=== PATIENT | male | born 1985 | race Caucasian/White ===

== ENCOUNTER 2021-10-26 10:12 | Emergency (ER) | payer SELFPAY ==
[~2021-10-26] VITALS: Ht 182.9 cm; Wt 137.4 kg
[2021-10-26 10:31] VITALS: BP 156/93
[2021-10-26] MEDS ORDERED: AMOXIL/CLAVULANATE 875/125 MG 1 TAB PO ONE (11:10)
[2021-10-26] MEDS ORDERED: GABAPENTIN 300 MG CAP PO ONE ×2 (11:10→11:25)
[2021-10-26] MEDS ORDERED: HYDR-5191 PO (11:18)
[2021-10-26] MEDS ORDERED: GABA800T6 PO (11:18)
[2021-10-26] MEDS ORDERED: AMOX-1000 PO (11:18)
--- NOTE | 2021-10-26 11:27 | NUR ---
36/M BIB SELF FOR MED REFILL. PATIENT STATES HE HAS BEEN DEALING WITH A GUM INFECTION AND IS LOOKING TO HAVE A PRESCRIPTION FOR GABAPENTIN AND NORCO FILLED BECAUSE HE RECENTLY RAN OUT. STATES HE [place] AND IS STILL WORKING TO GET A PCP. PATIENT DENIES SOB, FEVER OR CHILLS.
--- NOTE | 2021-10-26 11:45 | NUR ---
Patient discharged with v/s stable. Written and verbal after care instructions ABOUT MEDICINE REFILL IN THE ED AND DENTAL ABSCESS given and explained. Patient alert, oriented and verbalized understanding of instructions. Ambulatory with steady gait. All questions addressed prior to discharge. ID band removed. Patient advised to follow up with PMD. Rx of AUGMENTIN 875-125, GABAPENTIN, AND NORCO 10-325MG given. Patient educated on indication of medication including possible reaction and side effects. Opportunity to ask questions provided and answered.
== END 2021-10-26 11:45 | disposition home or self-care (01) ==
LOC: MED 10:12
DX: K04.7 Periapical abscess without sinus (principal); K02.9 Dental caries, unspecified; Z76.0 Encounter for issue of repeat prescription; Z79.899 Other long term (current) drug therapy; Z88.6 Allergy status to analgesic agent; Z88.8 Allergy status to other drugs, medicaments and biological substances
CPT/HCPCS: 99283

== ENCOUNTER 2021-11-15 10:25 | Emergency (ER) | payer OTHER ==
[~2021-11-15] VITALS: Ht 182.9 cm; Wt 139.9 kg
[~2021-11-15 10:25] MED LIST: AMOX-1000 PO; GABA800T6 PO; HYDR-5191 PO
[2021-11-15 10:28] VITALS: BP 151/107
--- NOTE | 2021-11-15 10:37 | NUR ---
PATIENT AMBULATED TO BED 11.
--- NOTE | 2021-11-15 10:44 | NUR ---
36 Y MALE FROM HOME WITH C/O GUM PAIN ON & OFF X 5 WEEKS. SEEN HERE FOR DENTAL ABSCESS 10/26/21. PT STATED HE WAS GIVEN ABX WHEN HE WAS LAST SEEN, BUT HAS RUN OUT OF HIS MEDICATIONS. PT TAKES TYLENOL AT HOME, BUT DENIES ANY PAIN RELFIEF. BROKEN TOOTH AND BLACK TOOTH NOTED ON R SIDE OF GUM. PT STATED HE IS UNABLE TO SEE A DENTIST UNTIL 12/14/21 DUE TO INSURNACE REASONS. PT STATED HE IS STILL ABLE TO EAT AND DRINK NORMALLY AT THIS TIME. DENIES ANY N/V OR DYSPHAGIA AT THIS TIME PMH: SJORGEN'S, LUPUS ALLERGIES: ASPIRIN, NSAIDS, KETOROLAC
--- NOTE | 2021-11-15 10:50 | NUR ---
DR. ALVA BEDSIDE EVALUATING PT
[2021-11-15] MEDS ORDERED: HYDROcodone/APAP 10/325 MG 1 TAB TAB PO ONE (11:20)
[2021-11-15] MEDS ORDERED: GABAPENTIN 300 MG CAP PO ONE (11:20)
[2021-11-15] MEDS ORDERED: CLINDAMYCIN 150 MG CAP PO ONE (11:20)
[2021-11-15] MEDS ORDERED: CLIN300C73 PO (11:30)
[2021-11-15] MEDS ORDERED: GABA800T6 PO (11:30)
[2021-11-15 12:08] VITALS: BP 151/107
--- NOTE | 2021-11-15 12:08 | NUR ---
Patient discharged with v/s stable. Written and verbal after care instructions given and explained. Patient alert, oriented and verbalized understanding of instructions. Ambulatory with steady gait. All questions addressed prior to discharge. ID band removed. Patient advised to follow up with PMD. Rx of CLINDAMYCIN AND GABAPENTIN given. Patient educated on indication of medication including possible reaction and side effects. Opportunity to ask questions provided and answered.
== END 2021-11-15 12:08 | disposition home or self-care (01) ==
LOC: MED 10:25
DX: K02.9 Dental caries, unspecified (principal); M25.00 Hemarthrosis, unspecified joint; Z88.8 Allergy status to other drugs, medicaments and biological substances; Z79.899 Other long term (current) drug therapy
CPT/HCPCS: 99284

== ENCOUNTER 2021-12-25 18:29 | Emergency (ER) | payer MEDICAID, OTHER ==
[~2021-12-25] VITALS: Ht 182.9 cm; Wt 138.8 kg
[~2021-12-25 18:29] MED LIST changes: +CLIN300C73 PO
[2021-12-25 18:41] VITALS: BP 142/87
--- NOTE | 2021-12-25 19:26 | NUR ---
PT SEEN AND EVALUATED BY STEFFANIE TAPIA. NO NURSING INTERVENTIONS PROVIDED.
[2021-12-25] MEDS ORDERED: GABA800T6 PO (19:31)
--- NOTE | 2021-12-25 19:58 | NUR ---
Patient discharged with v/s stable. Written and verbal after care instructions given and explained. Patient alert, oriented and verbalized understanding of instructions. Ambulatory with steady gait. All questions addressed prior to discharge. ID band removed. Patient advised to follow up with PMD. Rx of GABAPENTIN given. Patient educated on indication of medication including possible reaction and side effects. Opportunity to ask questions provided and answered.
== END 2021-12-25 19:58 | disposition home or self-care (01) ==
LOC: MED 18:29
DX: G62.9 Polyneuropathy, unspecified (principal); M32.9 Systemic lupus erythematosus, unspecified; Z79.899 Other long term (current) drug therapy; Z88.6 Allergy status to analgesic agent; Z88.8 Allergy status to other drugs, medicaments and biological substances; Z90.49 Acquired absence of other specified parts of digestive tract
CPT/HCPCS: 99283

== ENCOUNTER 2022-02-10 19:01 | Emergency (ER) | payer SELFPAY ==
[~2022-02-10] VITALS: Ht 180.3 cm; Wt 136.1 kg
[2022-02-10 19:29] VITALS: BP 155/80
[2022-02-10] MEDS ORDERED: GABA400C PO (20:19)
[2022-02-10 20:38] VITALS: BP 142/77
== END 2022-02-10 20:38 | disposition home or self-care (01) ==
LOC: MED 19:01
DX: L93.0 Discoid lupus erythematosus (principal); M79.2 Neuralgia and neuritis, unspecified
CPT/HCPCS: 99283

== ENCOUNTER 2022-02-13 16:00 | Emergency (ER) | payer SELFPAY ==
[~2022-02-13] VITALS: Ht 182.9 cm; Wt 127.0 kg
[~2022-02-13 16:00] MED LIST changes: +GABA400C PO
[2022-02-13 16:01] VITALS: BP 136/78
[2022-02-13] MEDS ORDERED: GABA800T6 PO (16:28)
[2022-02-13 16:32] VITALS: BP 136/78
--- NOTE | 2022-02-13 16:32 | NUR ---
Patient discharged with v/s stable. Written and verbal after care instructions given and explained. Patient alert, oriented and verbalized understanding of instructions. Ambulatory with steady gait. All questions addressed prior to discharge. ID band removed. Patient advised to follow up with PMD. Rx of gabapentin given. Patient educated on indication of medication including possible reaction and side effects. Opportunity to ask questions provided and answered.
== END 2022-02-13 16:32 | disposition home or self-care (01) ==
LOC: MED 16:00
DX: Z76.0 Encounter for issue of repeat prescription (principal); Z79.899 Other long term (current) drug therapy; Z79.891 Long term (current) use of opiate analgesic; Z79.2 Long term (current) use of antibiotics; Z88.6 Allergy status to analgesic agent
CPT/HCPCS: 99281

== ENCOUNTER 2022-04-17 17:52 | Emergency (ER) | payer SELFPAY ==
[~2022-04-17] VITALS: Ht 182.9 cm; Wt 130.2 kg
[2022-04-17 17:56] VITALS: BP 131/96
--- NOTE | 2022-04-17 18:01 | NUR ---
C/C BACK AND KNEE PAIN, STATES HE HAS HX OF LUPUS AND RAN OUT OF HIS MEDICATION.
--- NOTE | 2022-04-17 18:01 | NUR ---
PATIENT AMBULATED WITH STEADY GAIT TO BED 4.
--- NOTE | 2022-04-17 18:04 | NUR ---
MD AT BEDSIDE ASSESSING PATIENT
[2022-04-17] MEDS ORDERED: GABA800T6 PO (18:24)
[2022-04-17 18:45] VITALS: BP 129/90
--- NOTE | 2022-04-17 18:46 | NUR ---
Patient discharged with v/s stable. Written and verbal after care instructions given and explained. Patient verbalized understanding. Ambulatory with steady gait. All questions addressed prior to discharge. Advised to follow up with PMD.
== END 2022-04-17 18:46 | disposition home or self-care (01) ==
LOC: MED 17:52
DX: M32.9 Systemic lupus erythematosus, unspecified (principal); Z76.0 Encounter for issue of repeat prescription; Z79.899 Other long term (current) drug therapy; Z88.6 Allergy status to analgesic agent; Z88.8 Allergy status to other drugs, medicaments and biological substances
CPT/HCPCS: 99281

== ENCOUNTER 2022-06-11 12:41 | Emergency (ER) | payer MEDICAID ==
[~2022-06-11] VITALS: Ht 182.9 cm; Wt 131.3 kg
[2022-06-11 12:47] VITALS: BP 129/76
[2022-06-11] MEDS ORDERED: GABA800T6 PO (13:08)
--- NOTE | 2022-06-11 13:16 | NUR ---
NO NURSING INTERVENTIONS NEEDED, SEEN & TREATED BY STEFFANIE MADERA.
[2022-06-11 13:19] VITALS: BP 129/76
== END 2022-06-11 13:19 | disposition home or self-care (01) ==
LOC: MED 12:41
DX: G62.9 Polyneuropathy, unspecified (principal); Z76.0 Encounter for issue of repeat prescription; R03.0 Elevated blood-pressure reading, without diagnosis of hypertension; J45.909 Unspecified asthma, uncomplicated; Z88.8 Allergy status to other drugs, medicaments and biological substances; Z79.899 Other long term (current) drug therapy; Z88.6 Allergy status to analgesic agent
CPT/HCPCS: 99283

== ENCOUNTER 2022-07-26 09:43 | Emergency (ER) | payer SELFPAY ==
[~2022-07-26] VITALS: Ht 182.9 cm; Wt 132.4 kg
[2022-07-26 09:47] VITALS: BP 143/90
--- NOTE | 2022-07-26 09:59 | NUR ---
PT AMB TO [facility]
--- NOTE | 2022-07-26 10:02 | NUR ---
BIB SELF FOR Medication Refill: GABAPENTINE 800MG X 3 TIMES DAILY. C/O ZULMA HANDS PAIN X 4 DAYS. PMH: LUPUS,GASTRITIS, DIVERTICULITIS, SJOGREN'S SYNDROME
--- NOTE | 2022-07-26 10:37 | NUR ---
Patient being evaluated by DR COLEY at [facility].
[2022-07-26] MEDS ORDERED: GABA400C PO (10:42)
[2022-07-26 10:48] VITALS: BP 149/79
[2022-07-26] MEDS ORDERED: GABA800T6 PO (10:48)
== END 2022-07-26 10:48 | disposition home or self-care (01) ==
LOC: MED 09:43
DX: M32.9 Systemic lupus erythematosus, unspecified (principal); G62.9 Polyneuropathy, unspecified; I10 Essential (primary) hypertension; Z76.0 Encounter for issue of repeat prescription; Z88.6 Allergy status to analgesic agent; Z88.8 Allergy status to other drugs, medicaments and biological substances; Z79.899 Other long term (current) drug therapy
CPT/HCPCS: 99283

== ENCOUNTER 2022-09-10 13:17 | Emergency (ER) | payer SELFPAY ==
[~2022-09-10] VITALS: Ht 182.9 cm; Wt 134.3 kg
[2022-09-10 13:38] VITALS: BP 134/69
--- NOTE | 2022-09-10 13:41 | NUR ---
PT TO LOBBY.
[2022-09-10] MEDS ORDERED: GABA800T6 PO (14:04)
[2022-09-10 14:13] VITALS: BP 134/69
== END 2022-09-10 14:13 | disposition home or self-care (01) ==
LOC: MED 13:17
DX: Z76.0 Encounter for issue of repeat prescription (principal); Z79.1 Long term (current) use of non-steroidal anti-inflammatories (NSAID); Z79.82 Long term (current) use of aspirin
CPT/HCPCS: 99281

== ENCOUNTER 2022-10-14 14:39 | Emergency (ER) | payer MEDICAID ==
[~2022-10-14] VITALS: Ht 182.9 cm; Wt 133.5 kg
[2022-10-14 15:04] VITALS: BP 154/100
--- NOTE | 2022-10-14 15:12 | NUR ---
BIB SELF FOR MED REFILL. C/O HANDS, FINGERS PAIN X 2 DAYS. ALBUTEROL INHALER NEEDED HYDROXYCHLOROQUINE 40 MG 1 TAB A DAY GABAPENTINE 500 MG 3 TIMES A DAY PMH: LUPUS, ARTHRITIS
[2022-10-14] MEDS ORDERED: GABA800T6 PO (15:57)
[2022-10-14 16:22] VITALS: BP 154/100
--- NOTE | 2022-10-14 16:22 | NUR ---
Note isabella in EDM - 10/14/22 at 1959 by [facility] Patient discharged with v/s stable. Written and verbal after care instructions given and explained. Patient alert, oriented and verbalized understanding of instructions. Ambulatory with steady gait. All questions addressed prior to discharge. ID band removed. Patient advised to follow up with PMD. Rx of GABAPENTIN given. Patient educated on indication of medication including possible reaction and side effects. Opportunity to ask questions provided and answered.
== END 2022-10-14 16:22 | disposition home or self-care (01) ==
LOC: MED 14:39
DX: G62.9 Polyneuropathy, unspecified (principal); R03.0 Elevated blood-pressure reading, without diagnosis of hypertension; Z76.0 Encounter for issue of repeat prescription; Z79.899 Other long term (current) drug therapy; Z88.8 Allergy status to other drugs, medicaments and biological substances; Z88.6 Allergy status to analgesic agent
CPT/HCPCS: 99281

== ENCOUNTER 2022-12-24 13:01 | Emergency (ER) | payer SELFPAY ==
[~2022-12-24] VITALS: Ht 182.9 cm; Wt 136.1 kg
[2022-12-24 13:04] VITALS: BP 126/70
--- NOTE | 2022-12-24 13:15 | NUR ---
37/M PRESENTS TO ED WITH C/O BILATERAL HAND PAIN IN WHICH HE RELATES TO A POSSIBLE LUPUS FLARE UP. STATES HE NEEDS A REFILL ON HIS GABAPENTIN UNTIL HIS INSURANCE RENEWS.
[2022-12-24] MEDS ORDERED: GABA800T6 PO (13:26)
--- NOTE | 2022-12-24 13:35 | NUR ---
Patient discharged with v/s stable. Written and verbal after care instructions ABOUT NEUROPATHIC PAIN given and explained. Patient alert, oriented and verbalized understanding of instructions. Ambulatory with steady gait. All questions addressed prior to discharge. ID band removed. Patient advised to follow up with PMD. Rx of GABAPENTIN given. Patient educated on indication of medication including possible reaction and side effects. Opportunity to ask questions provided and answered.
== END 2022-12-24 13:35 | disposition home or self-care (01) ==
LOC: MED 13:01
DX: M79.2 Neuralgia and neuritis, unspecified (principal); M32.9 Systemic lupus erythematosus, unspecified; Z76.0 Encounter for issue of repeat prescription; Z79.1 Long term (current) use of non-steroidal anti-inflammatories (NSAID); Z79.82 Long term (current) use of aspirin; Z88.1 Allergy status to other antibiotic agents
CPT/HCPCS: 99281